=== PATIENT | female | born 1965 ===

== ENCOUNTER 2023-05-22 08:44 | Outpatient (REF) | payer BC, SELFPAY ==
[2023-05-21 23:08] LABS: Bacteria Rare HPF (Negative); C & S Indicated? C&S Done As Ordered; Casts Negative LPF (Negative); Crystals Negative HPF (Negative); Epithelial Cells Rare HPF (Negative); Mucus Negative (Negative); RBC 0-2 HPF (0-2); WBC Negative HPF (0-5)
--- OUTSIDE RECORDS SUMMARY | 2023-05-22 08:50 | XMS_ITS | CCD ---
Author Name Unknown Address [address] [place] [address] [id number] Organization Unknown Address [address] [place] [address] [phone] Care Team Providers Care Semiconductor Engineer Name Role Phone MARICRUZ CHAVEZ Attending Physician [phone] Vital Signs Unknown or Not Available. Allergies Allergy Code Allergy Type Reaction Status CODEINE 2670 Drug allergy Nausea; Vomiting Active PERCOCET 51393 Drug allergy MAKES HER HYPER Active KEFLEX 784918 Drug allergy Anaphylaxis Active AMOXICILLIN 723 Drug allergy RASH Active LATEX 0 Allergy to substance Hives Acti ve Procedures Unknown or Not Available. History of Immunizations Unknown or Not Available. Problems Problem Code Start Date Resolved Date Status Acute upper UTI (urinary tract infection) 421318833 05/10 Active Results CULT URINE CULTURE* - [facility] t Date/Time: 02/24/2023 09:00 Test Name Code Test Result Test Units Test Ref Rang e COLLECTION MODE: 75187-9 NOT STATED N/A Active Medications Medication Code Dose Units Frequency Route Modificatio n Start Date/Time Ondansetron 4MG Oral Tablet, Disintegrating 625579 1 TABLET NEEDED EVERY 6 HOURS ORAL 05/10/2022 22:44 Prescription Detail TAKE 1 TABLET ORAL NEEDED EVERY 6 MARIEL RS FOR Nausea/Vomiting Levaquin 500MG Oral Tablet 459479 1 TABLET DAILY ORAL 05/10/20 22 22:43 Prescription Detail TAKE 1 TABLET ORAL DAILY Pyridium 200MG Oral Tablet 2368551 1 TABLET NEEDED THREE TIMES A DAY ORAL 05/10/2022 22:43 Prescription Detail TAKE 1 TABLET ORAL NEEDED THREE TIMES A DAY FOR Burning urination LEVOTHYROXINE SODIUM 0.088MG ORAL T 0 0.088 MILLIGRAMS DAILY ORAL 9 19:03 Prescription Detail TAKE 0.088 MILLIGRAMS ORAL DAILY Lisinopril 40MG Oral Tablet 670811 40 MILLIGRAMS DAILY ORAL 019 19:03 Prescription Detail TAKE 40 MILLIGRAMS ORAL DAILY LEVOTHYROXINE SODIUM 0.088MG ORAL T 0 0.088 MILLIGRAMS DAILY ORAL 9 00:54 Prescription Detail TAKE 0.088 MILLIGRAMS ORAL DAILY Lisinopril 20MG Oral Tablet 926368 40 MILLIGRAMS DAILY ORAL 019 00:54 Prescription Detail TAKE 40 MILLIGRAMS ORAL DAILY Lisinopril 20MG Oral Tablet 735557 20 MILLIGRAMS AT BEDTIME ORAL 2018 00:54 Prescription Detail TAKE 20 MILLIGRAMS ORAL AT BEDTIME Medications Administered During Visit Unknown or Not Available. Encounters Encounter Diagnosis Diagnosis Code Start Date Low back pain, unspecified M5450 02/24 Social History Smoking Status Code Start Date End Date Never smoker [id number] Patient Decision Aids Unknown or Not Available. Discharge Instructions You were admitted to [facility] on 02/24/2023 18:02 with a principal diagnosis of Low back pain, unspecified You had the following tests done:CULT URINE CULTURE* You were discharged from [facility] on 02/24/2023 18:02 Should you have any questions prior to discharge, please contact a member of your healthcare team. If you have left the hospital and have any questions, please contact your primary care physician. Chief Complaint and Reason For Visit Unknown or Not Available. Function Status Unknown or Not Available. Plan of Care Unknown or Not Available. Referral/Transition of Care Unknown or Not Available.
--- OUTSIDE RECORDS SUMMARY | 2023-05-22 08:50 | XMS_ITS | CCD ---
Author Name Unknown Address [address] [place] [address] [phone] Organization Unknown Address [address] [place] [address] [phone] Care Team Providers Care Carton Filling Machine Operator Name Role Phone LOUIE QUEZADA Attending Physician [phone] Vital Signs Unknown or Not Available. Allergies Allergy Code Allergy Type Reaction Status CODEINE 2670 Drug allergy Nausea; Vomiting Active PERCOCET 87817 Drug allergy MAKES HER HYPER Active KEFLEX 887444 Drug allergy Anaphylaxis Active AMOXICILLIN 723 Drug allergy RASH Active LATEX 0 Allergy to substance Hives Acti ve Procedures Unknown or Not Available. History of Immunizations Unknown or Not Available. Problems Problem Code Start Date Resolved Date Status Acute upper UTI (urinary tract infection) 333020667 05/10 Active Results CULT URINE CULTURE* - [facility] t Date/Time: 05/02/2023 12:02 Test Name Code Test Result Test Units Test Ref Rang e COLLECTION MODE: 73525-5 NOT STATED N/A Active Medications Medication Code Dose Units Frequency Route Modificatio n Start Date/Time Ondansetron 4MG Oral Tablet, Disintegrating 755402 1 TABLET NEEDED EVERY 6 HOURS ORAL 05/10/2022 22:44 Prescription Detail TAKE 1 TABLET ORAL NEEDED EVERY 6 MARIEL RS FOR Nausea/Vomiting Levaquin 500MG Oral Tablet 399702 1 TABLET DAILY ORAL 05/10/20 22 22:43 Prescription Detail TAKE 1 TABLET ORAL DAILY Pyridium 200MG Oral Tablet 1948620 1 TABLET NEEDED THREE TIMES A DAY ORAL 05/10/2022 22:43 Prescription Detail TAKE 1 TABLET ORAL NEEDED THREE TIMES A DAY FOR Burning urination LEVOTHYROXINE SODIUM 0.088MG ORAL T 0 0.088 MILLIGRAMS DAILY ORAL 9 19:03 Prescription Detail TAKE 0.088 MILLIGRAMS ORAL DAILY Lisinopril 40MG Oral Tablet 363843 40 MILLIGRAMS DAILY ORAL 019 19:03 Prescription Detail TAKE 40 MILLIGRAMS ORAL DAILY LEVOTHYROXINE SODIUM 0.088MG ORAL T 0 0.088 MILLIGRAMS DAILY ORAL 9 00:54 Prescription Detail TAKE 0.088 MILLIGRAMS ORAL DAILY Lisinopril 20MG Oral Tablet 386430 40 MILLIGRAMS DAILY ORAL 019 00:54 Prescription Detail TAKE 40 MILLIGRAMS ORAL DAILY Lisinopril 20MG Oral Tablet 382752 20 MILLIGRAMS AT BEDTIME ORAL 2018 00:54 Prescription Detail TAKE 20 MILLIGRAMS ORAL AT BEDTIME Medications Administered During Visit Unknown or Not Available. Encounters Unknown or Not Available. Social History Smoking Status Code Start Date End Date Never smoker [id number] Patient Decision Aids Unknown or Not Available. Discharge Instructions You were admitted to [facility] on 05/02/2023 14:49 You had the following tests done:CULT URINE CULTURE* You were discharged from [facility] on 05/02/2023 14:49 Should you have any questions prior to [...]
--- OUTSIDE RECORDS SUMMARY | 2023-05-22 08:51 | XMS_ITS | CCD ---
Author Name Unknown Address [address] [place] [address] [phone] Organization Unknown Address [address] [place] [address] [phone] Care Team Providers Care Ground Control Approach Technician Name Role Phone JACOB ORDONEZ Attending Physician [phone] Vital Signs Unknown or Not Available. Allergies Allergy Code Allergy Type Reaction Status CODEINE 2670 Drug allergy Nausea; Vomiting Active PERCOCET 73353 Drug allergy MAKES HER HYPER Active KEFLEX 034124 Drug allergy Anaphylaxis Active AMOXICILLIN 723 Drug allergy RASH Active LATEX 0 Allergy to substance Hives Acti ve Procedures Unknown or Not Available. History of Immunizations Unknown or Not Available. Problems Problem Code Start Date Resolved Date Status Acute upper UTI (urinary tract infection) 249419574 05/10 Active Diabetes 2 72478959 05/10/2022 Resolved Results Unknown or Not Available. Active Medications Medication Code Dose Units Frequency Route Modificatio n Start Date/Time Ondansetron 4MG Oral Tablet, Disintegrating 125478 1 TABLET NEEDED EVERY 6 HOURS ORAL 05/10/2022 22:44 Prescription Detail TAKE 1 TABLET ORAL NEEDED EVERY 6 MARIEL RS FOR Nausea/Vomiting Levaquin 500MG Oral Tablet 681734 1 TABLET DAILY ORAL 05/10/20 22 22:43 Prescription Detail TAKE 1 TABLET ORAL DAILY Pyridium 200MG Oral Tablet 6129822 1 TABLET NEEDED THREE TIMES A DAY ORAL 05/10/2022 22:43 Prescription Detail TAKE 1 TABLET ORAL NEEDED THREE TIMES A DAY FOR Burning urination LEVOTHYROXINE SODIUM 0.088MG ORAL T 0 0.088 MILLIGRAMS DAILY ORAL 9 19:03 Prescription Detail TAKE 0.088 MILLIGRAMS ORAL DAILY Lisinopril 40MG Oral Tablet 635589 40 MILLIGRAMS DAILY ORAL 019 19:03 Prescription Detail TAKE 40 MILLIGRAMS ORAL DAILY LEVOTHYROXINE SODIUM 0.088MG ORAL T 0 0.088 MILLIGRAMS DAILY ORAL 9 00:54 Prescription Detail TAKE 0.088 MILLIGRAMS ORAL DAILY Lisinopril 20MG Oral Tablet 324958 40 MILLIGRAMS DAILY ORAL 019 00:54 Prescription Detail TAKE 40 MILLIGRAMS ORAL DAILY Lisinopril 20MG Oral Tablet 871245 20 MILLIGRAMS AT BEDTIME ORAL 2018 00:54 Prescription Detail TAKE 20 MILLIGRAMS ORAL AT BEDTIME Medications Administered During Visit Unknown or Not Available. Encounters Encounter Diagnosis Diagnosis Code Start Date Unilateral primary osteoarthritis, left knee M17 12 02/26/2022 Social History Smoking Status Code Start Date End Date Never smoker [id number] Patient Decision Aids Unknown or Not Available. Discharge Instructions You were admitted to [facility] on 02/26/2022 07:27 with a principal diagnosis of Unilateral primary osteoarthritis, left knee You were discharged from [facility] on 02/26/2022 07:27 Should you have any questions prior to discharge, please contact a member of your healthcare team. If you have left the hospital and have any questions, please contact your primary care physician. Chief Complaint and Reason For Visit Chief Complaint Date of Onset LT KNEE PAIN Function Status Unknown or Not Available. Plan of Care Unknown or Not Available. Referral/Transition of Care Unknown or Not Available.
--- OUTSIDE RECORDS SUMMARY | 2023-05-22 08:51 | XMS_ITS | CCD ---
Author Name Unknown Address [address] [place] [address] [phone] Organization Unknown Address [address] [place] [address] [phone] Care Team Providers Care Front Office Representative Name Role Phone JACOB ORDONEZ Attending Physician [phone] Vital Signs Unknown or Not Available. Allergies Allergy Code Allergy Type Reaction Status CODEINE 2670 Drug allergy Nausea; Vomiting Active PERCOCET 78376 Drug allergy MAKES HER HYPER Active KEFLEX 866547 Drug allergy Anaphylaxis Active AMOXICILLIN 723 Drug allergy RASH Active LATEX 0 Allergy to substance Hives Acti ve Procedures Unknown or Not Available. History of Immunizations Unknown or Not Available. Problems Problem Code Start Date Resolved Date Status Acute upper UTI (urinary tract infection) 971146105 05/10 Active Diabetes 2 76057159 05/10/2022 Resolved Results Unknown or Not Available. Active Medications Medication Code Dose Units Frequency Route Modificatio n Start Date/Time Ondansetron 4MG Oral Tablet, Disintegrating 448034 1 TABLET NEEDED EVERY 6 HOURS ORAL 05/10/2022 22:44 Prescription Detail TAKE 1 TABLET ORAL NEEDED EVERY 6 MARIEL RS FOR Nausea/Vomiting Levaquin 500MG Oral Tablet 876077 1 TABLET DAILY ORAL 05/10/20 22 22:43 Prescription Detail TAKE 1 TABLET ORAL DAILY Pyridium 200MG Oral Tablet 3397374 1 TABLET NEEDED THREE TIMES A DAY ORAL 05/10/2022 22:43 Prescription Detail TAKE 1 TABLET ORAL NEEDED THREE TIMES A DAY FOR Burning urination LEVOTHYROXINE SODIUM 0.088MG ORAL T 0 0.088 MILLIGRAMS DAILY ORAL 9 19:03 Prescription Detail TAKE 0.088 MILLIGRAMS ORAL DAILY Lisinopril 40MG Oral Tablet 696300 40 MILLIGRAMS DAILY ORAL 019 19:03 Prescription Detail TAKE 40 MILLIGRAMS ORAL DAILY LEVOTHYROXINE SODIUM 0.088MG ORAL T 0 0.088 MILLIGRAMS DAILY ORAL 9 00:54 Prescription Detail TAKE 0.088 MILLIGRAMS ORAL DAILY Lisinopril 20MG Oral Tablet 868746 40 MILLIGRAMS DAILY ORAL 019 00:54 Prescription Detail TAKE 40 MILLIGRAMS ORAL DAILY Lisinopril 20MG Oral Tablet 307630 20 MILLIGRAMS AT BEDTIME ORAL 2018 00:54 Prescription Detail TAKE 20 MILLIGRAMS ORAL AT BEDTIME Medications Administered During Visit Unknown or Not Available. Encounters Encounter Diagnosis Diagnosis Code Start Date Inconclusive mammography finding [id number] 09/24/2021 Social History Smoking Status Code Start Date End Date Never smoker [id number] Patient Decision Aids Unknown or Not Available. Discharge Instructions You were admitted to [facility] on 09/24/2021 09:49 with a principal diagnosis of Other abnormal and inconclusive findings on diagnostic imaging of breast You were discharged from [facility] on 09/24/2021 09:49 Should you have any questions prior to discharge, please contact a member of your healthcare team. If you have left the hospital and have any questions, please contact your primary care physician. Chief Complaint and Reason For Visit Chief Complaint Date of Onset CALLBACK REPORT FROM 09/11/21 Function Status Unknown or Not Available. Plan of Care Unknown or Not Available. Referral/Transition of Care Unknown or Not Available.
--- OUTSIDE RECORDS SUMMARY | 2023-05-22 08:51 | XMS_ITS | CCD ---
Author Name Unknown Address [address] [place] [address] [phone] Organization Unknown Address [address] [place] [address] [phone] Care Team Providers Care Cuff Setter Lockstitch Name Role Phone JACOB ORDONEZ Attending Physician [phone] Vital Signs Unknown or Not Available. Allergies Allergy Code Allergy Type Reaction Status CODEINE 2670 Drug allergy Nausea; Vomiting Active PERCOCET 89552 Drug allergy MAKES HER HYPER Active KEFLEX 449071 Drug allergy Anaphylaxis Active AMOXICILLIN 723 Drug allergy RASH Active LATEX 0 Allergy to substance Hives Acti ve Procedures Unknown or Not Available. History of Immunizations Unknown or Not Available. Problems Problem Code Start Date Resolved Date Status Acute upper UTI (urinary tract infection) 810684955 05/10 Active Diabetes 2 88132753 05/10/2022 Resolved Results Unknown or Not Available. Active Medications Medication Code Dose Units Frequency Route Modificatio n Start Date/Time Ondansetron 4MG Oral Tablet, Disintegrating 849094 1 TABLET NEEDED EVERY 6 HOURS ORAL 05/10/2022 22:44 Prescription Detail TAKE 1 TABLET ORAL NEEDED EVERY 6 MARIEL RS FOR Nausea/Vomiting Levaquin 500MG Oral Tablet 199498 1 TABLET DAILY ORAL 05/10/20 22 22:43 Prescription Detail TAKE 1 TABLET ORAL DAILY Pyridium 200MG Oral Tablet 4908274 1 TABLET NEEDED THREE TIMES A DAY ORAL 05/10/2022 22:43 Prescription Detail TAKE 1 TABLET ORAL NEEDED THREE TIMES A DAY FOR Burning urination LEVOTHYROXINE SODIUM 0.088MG ORAL T 0 0.088 MILLIGRAMS DAILY ORAL 9 19:03 Prescription Detail TAKE 0.088 MILLIGRAMS ORAL DAILY Lisinopril 40MG Oral Tablet 062973 40 MILLIGRAMS DAILY ORAL 019 19:03 Prescription Detail TAKE 40 MILLIGRAMS ORAL DAILY LEVOTHYROXINE SODIUM 0.088MG ORAL T 0 0.088 MILLIGRAMS DAILY ORAL 9 00:54 Prescription Detail TAKE 0.088 MILLIGRAMS ORAL DAILY Lisinopril 20MG Oral Tablet 758075 40 MILLIGRAMS DAILY ORAL 019 00:54 Prescription Detail TAKE 40 MILLIGRAMS ORAL DAILY Lisinopril 20MG Oral Tablet 858289 20 MILLIGRAMS AT BEDTIME ORAL 2018 00:54 Prescription Detail TAKE 20 MILLIGRAMS ORAL AT BEDTIME Medications Administered During Visit Unknown or Not Available. Encounters Encounter Diagnosis Diagnosis Code Start Date Other abnormal and inconclus juanita findings on diagnostic imaging of breast R928 03/24/2022 Social History Smoking Status Code Start Date End Date Never smoker [id number] Patient Decision Aids Unknown or Not Available. Discharge Instructions You were admitted to [facility] on 03/24/2022 07:51 with a principal diagnosis of Other abnormal and inconclusive findings on diagnostic imaging of breast You were discharged from [facility] on 03/24/2022 07:51 Should you have any questions prior to discharge, please contact a member of your healthcare team. If you have left the hospital and have any questions, please contact your primary care physician. Chief Complaint and Reason For Visit Chief Complaint Date of Onset 6 MONTH FU Function Status Unknown or Not Available. Plan of Care Unknown or Not Available. Referral/Transition of Care Unknown or Not Available.
--- OUTSIDE RECORDS SUMMARY | 2023-05-22 08:51 | XMS_ITS | CCD ---
Author Name Unknown Address [address] [place] [address] [phone] Organization Unknown Address [address] [place] [address] [phone] Care Team Providers Care Front Office Assistant Name Role Phone MERYMICHAELJACOB Attending Physician [phone] Vital Signs Unknown or Not Available. Allergies Allergy Code Allergy Type Reaction Status CODEINE 2670 Drug allergy Nausea; Vomiting Active PERCOCET 11029 Drug allergy MAKES HER HYPER Active KEFLEX 627754 Drug allergy Anaphylaxis Active AMOXICILLIN 723 Drug allergy RASH Active LATEX 0 Allergy to substance Hives Acti ve Procedures Unknown or Not Available. History of Immunizations Unknown or Not Available. Problems Problem Code Start Date Resolved Date Status Acute upper UTI (urinary tract infection) 414855107 05/10 Active Results LIPID PANEL* - Collect Date/ Time: 09/11/2022 07:38 Test Name Code Test Result Test Units Test Ref Rang e CHOLESTEROL 2093-3 185 mg/dL L=0 H=200 TRIGLYCERIDES 2571-8 241 mg/dL L=53 H=223 HDL 2085-9 39 mg/dL L=37 H=91 non-HDL-C 83511-8 146 mg/dL L=0 H=160 LDL (CALC) 61696-6 98 mg/dL L=0 H=130 % HDL 21.1 % Chol/HDL Ratio 9830-1 4.7 L=0.0 H=4. 4 CHD Relative Risk 1.1 x Avg L=0.0 H =1.0 LDL/HDL Ratio 27827-7 2.5 L=0.0 H=3.2 CHD Relative Risk. 0.8 x Avg L=0.0 H=1.0 FASTING STATUS: FASTING N/A TSH THYROID STIMULATING HORM ONE* - Collect Date/Time: 09/11/2022 07:38 Test Name Code Test Result Test Units Test Ref Rang e TSH 3014-8 2.918 uIU/mL L=0.360 H=3.74 0 Active Medications Medication Code Dose Units Frequency Route Modificatio n Start Date/Time Ondansetron 4MG Oral Tablet, Disintegrating 745076 1 TABLET NEEDED EVERY 6 HOURS ORAL 05/10/2022 22:44 Prescription Detail TAKE 1 TABLET ORAL NEEDED EVERY 6 MARIEL RS FOR Nausea/Vomiting Levaquin 500MG Oral Tablet 672828 1 TABLET DAILY ORAL 05/10/20 22 22:43 Prescription Detail TAKE 1 TABLET ORAL DAILY Pyridium 200MG Oral Tablet 2855229 1 TABLET NEEDED THREE TIMES A DAY ORAL 05/10/2022 22:43 Prescription Detail TAKE 1 TABLET ORAL NEEDED THREE TIMES A DAY FOR Burning urination LEVOTHYROXINE SODIUM 0.088MG ORAL T 0 0.088 MILLIGRAMS DAILY ORAL 9 19:03 Prescription Detail TAKE 0.088 MILLIGRAMS ORAL DAILY Lisinopril 40MG Oral Tablet 098778 40 MILLIGRAMS DAILY ORAL 019 19:03 Prescription Detail TAKE 40 MILLIGRAMS ORAL DAILY LEVOTHYROXINE SODIUM 0.088MG ORAL T 0 0.088 MILLIGRAMS DAILY ORAL 9 00:54 Prescription Detail TAKE 0.088 MILLIGRAMS ORAL DAILY Lisinopril 20MG Oral Tablet 947852 40 MILLIGRAMS DAILY ORAL 019 00:54 Prescription Detail TAKE 40 MILLIGRAMS ORAL DAILY Lisinopril 20MG Oral Tablet 078793 20 MILLIGRAMS AT BEDTIME ORAL 2018 00:54 Prescription Detail TAKE 20 MILLIGRAMS ORAL AT BEDTIME Medications Administered During Visit Unknown or Not Available. Encounters Unknown or Not Available. Social History Smoking Status Code Start Date End Date Never smoker [id number] Patient Decision Aids Unknown or Not Available. Discharge Instructions You were admitted to [facility] on 09/11/2022 07:04 You had the following tests done:LIPID PANEL*TSH THYROID STIMULATING HORMONE* You were discharged from [facility] Should you have any questions prior to [...]
--- OUTSIDE RECORDS SUMMARY | 2023-05-22 08:51 | XMS_ITS | CCD ---
Author Name Unknown Address [address] [place] [address] [phone] Organization Unknown Address [address] [place] [address] [id number] Care Team Providers Care Tip Finisher Name Role Phone LEONA RICHEY Attending Physician [phone] Vital Signs Unknown or Not Available. Allergies Allergy Code Allergy Type Reaction Status CODEINE 2670 Drug allergy Nausea; Vomiting Active PERCOCET 90086 Drug allergy MAKES HER HYPER Active KEFLEX 718257 Drug allergy Anaphylaxis Active AMOXICILLIN 723 Drug allergy RASH Active LATEX 0 Allergy to substance Hives Acti ve Procedures Unknown or Not Available. History of Immunizations Unknown or Not Available. Problems Problem Code Start Date Resolved Date Status Acute upper UTI (urinary tract infection) 456754258 05/10 Active Diabetes 2 49013725 05/10/2022 Resolved Results [facility] COVID RHEONIX* - [facility] Date/Time: 03/26/2022 09:54 Test Name Code Test Result Test Units Test Ref Rang e Tier- 41975-5 SYMPTOMS N/A SARS COV2 RNA: 06748-3 POSITIVE N/A REFERENCE RANGE: NEGAT Active Medications Medication Code Dose Units Frequency Route Modificatio n Start Date/Time Ondansetron 4MG Oral Tablet, Disintegrating 586463 1 TABLET NEEDED EVERY 6 HOURS ORAL 05/10/2022 22:44 Prescription Detail TAKE 1 TABLET ORAL NEEDED EVERY 6 MARIEL RS FOR Nausea/Vomiting Levaquin 500MG Oral Tablet 901375 1 TABLET DAILY ORAL 05/10/20 22:43 Prescription Detail TAKE 1 TABLET ORAL DAILY Pyridium 200MG Oral Tablet 9165190 1 TABLET NEEDED THREE TIMES A DAY ORAL 05/10/2022 22:43 Prescription Detail TAKE 1 TABLET ORAL NEEDED THREE TIMES A DAY FOR Burning urination LEVOTHYROXINE SODIUM 0.088MG ORAL T 0 0.088 MILLIGRAMS DAILY ORAL 06/11/201 9 19:03 Prescription Detail TAKE 0.088 MILLIGRAMS ORAL DAILY Lisinopril 40MG Oral Tablet 893992 40 MILLIGRAMS DAILY ORAL 019 19:03 Prescription Detail TAKE 40 MILLIGRAMS ORAL DAILY LEVOTHYROXINE SODIUM 0.088MG ORAL T 0 0.088 MILLIGRAMS DAILY ORAL 9 00:54 Prescription Detail TAKE 0.088 MILLIGRAMS ORAL DAILY Lisinopril 20MG Oral Tablet 876820 40 MILLIGRAMS DAILY ORAL 019 00:54 Prescription Detail TAKE 40 MILLIGRAMS ORAL DAILY Lisinopril 20MG Oral Tablet 135164 20 MILLIGRAMS AT BEDTIME ORAL 2018 00:54 Prescription Detail TAKE 20 MILLIGRAMS ORAL AT BEDTIME Medications Administered During Visit Unknown or Not Available. Encounters Encounter Diagnosis Diagnosis Code Start Date COVID-19 [id number] 03/26/2022 Social History Smoking Status Code Start Date End Date Never smoker 217320399 Patient Decision Aids Unknown or Not Available. Discharge Instructions You were admitted to [facility] on 03/26/2022 08:15 with a principal diagnosis of COVID-19 You had the following tests done:[facility] COVID RHEONIX* You were discharged from [facility] on 03/26/2022 08:15 Should you have any questions prior to [...]
--- OUTSIDE RECORDS SUMMARY | 2023-05-22 08:51 | XMS_ITS | CCD ---
Author Name Unknown Address [address] [place] [address] [id number] Organization Unknown Address [address] [place] [address] [id number] Care Team Providers Care Experimental Mechanic Electrical Name Role Phone JACOB ORDONEZ Attending Physician [phone] Vital Signs Unknown or Not Available. Allergies Allergy Code Allergy Type Reaction Status CODEINE 2670 Drug allergy Nausea; Vomiting Active PERCOCET 36600 Drug allergy MAKES HER HYPER Active KEFLEX 398254 Drug allergy Anaphylaxis Active AMOXICILLIN 723 Drug allergy RASH Active LATEX 0 Allergy to substance Hives Acti ve Procedures Unknown or Not Available. History of Immunizations Unknown or Not Available. Problems Problem Code Start Date Resolved Date Status Acute upper UTI (urinary tract infection) 509303202 05/10 Active Diabetes 2 60939993 05/10/2022 Resolved Results TSH THYROID STIMULATING HORM ONE* - Collect Date/Time: 09/17/2021 09:04 Test Name Code Test Result Test Units Test Ref Rang e TSH 3014-8 2.703 uIU/mL L=0.360 H=3.74 0 Active Medications Medication Code Dose Units Frequency Route Modificatio n Start Date/Time Ondansetron 4MG Oral Tablet, Disintegrating 081125 1 TABLET NEEDED EVERY 6 HOURS ORAL 05/10/2022 22:44 Prescription Detail TAKE 1 TABLET ORAL NEEDED EVERY 6 MARIEL RS FOR Nausea/Vomiting Levaquin 500MG Oral Tablet 703037 1 TABLET DAILY ORAL 05/10/20 22:43 Prescription Detail TAKE 1 TABLET ORAL DAILY Pyridium 200MG Oral Tablet 4712779 1 TABLET NEEDED THREE TIMES A DAY ORAL 05/10/2022 22:43 Prescription Detail TAKE 1 TABLET ORAL NEEDED THREE TIMES A DAY FOR Burning urination LEVOTHYROXINE SODIUM 0.088MG ORAL T 0 0.088 MILLIGRAMS DAILY ORAL 19:03 Prescription Detail TAKE 0.088 MILLIGRAMS ORAL DAILY Lisinopril 40MG Oral Tablet 186558 40 MILLIGRAMS DAILY ORAL 019 19:03 Prescription Detail TAKE 40 MILLIGRAMS ORAL DAILY LEVOTHYROXINE SODIUM 0.088MG ORAL T 0 0.088 MILLIGRAMS DAILY ORAL 9 00:54 Prescription Detail TAKE 0.088 MILLIGRAMS ORAL DAILY Lisinopril 20MG Oral Tablet 635000 40 MILLIGRAMS DAILY ORAL 019 00:54 Prescription Detail TAKE 40 MILLIGRAMS ORAL DAILY Lisinopril 20MG Oral Tablet 055620 20 MILLIGRAMS AT BEDTIME ORAL 2018 00:54 Prescription Detail TAKE 20 MILLIGRAMS ORAL AT BEDTIME Medications Administered During Visit Unknown or Not Available. Encounters Encounter Diagnosis Diagnosis Code Start Date Hypothyroidism 65730799 09/17/2021 Social History Smoking Status Code Start Date End Date Never smoker [id number] Patient Decision Aids Unknown or Not Available. Discharge Instructions You were admitted to [facility] on 09/17/2021 18:21 with a principal diagnosis of Hypothyroidism, unspecified You had the following tests done:TSH THYROID STIMULATING HORMONE* You were discharged from [facility] on 09/17/2021 18:21 Should you have any questions prior to [...]
--- OUTSIDE RECORDS SUMMARY | 2023-05-22 08:51 | XMS_ITS | CCD ---
Author Name Unknown Address [address] [place] [address] [id number] Organization Unknown Address [address] [place] [address] [id number] Care Team Providers Care Count Team Clerk Name Role Phone ESDRAS ARROYO Attending Physician [phone] ESDRAS ARROYO Er Physician 9 [phone] DEREJE Gutierrez Registered Nurse [phone] JANEL Coronado Registered Nurse [phone] Vital Signs Vital Sign Value Unit Date/Time Recent/Initial ? BMI (Body Mass Index) 41.81 kg/m^2 05/10/2022 21: 40 Initial VS Weight Measured 275 lbs 05/10/2022 21:40 Ini tial VS Height 68 in 05/10/2022 21:40 Initial VS BSA (Body Surface Area) 2.45 m^2 05/10/2022 2 1:40 Initial VS BP Systolic 183 mmHg 05/10/2022 21:40 Initial VS BP Diastolic 107 mmHg 05/10/2022 21:40 Initia l VS Respiratory Rate 18 bpm 05/10/2022 21:40 In itial VS Heart Rate 117 bpm 05/10/2022 21:40 Initial VS O2 % BldC Oximetry 98 % 05/10/2022 21:40 Initial VS Body Temperature 37.2 degrees 05/10/2022 21:40 In itial VS BP Systolic 153 mmHg 05/10/2022 23:58 Most Re cent VS BP Diastolic 97 mmHg 05/10/2022 23:58 Most R ecent VS Respiratory Rate 16 bpm 05/10/2022 23:[address] Recent VS Heart Rate 80 bpm 05/10/2022 23:58 Most Rec ent VS O2 % BldC Oximetry 94 % 05/10/2022 23:58 Most Recent VS Body Temperature 37.1 degrees 05/10/2022 23:[address] Recent VS Allergies Allergy Code Allergy Type Reaction Status CODEINE 2670 Drug allergy Nausea; Vomiting Active PERCOCET 58284 Drug allergy MAKES HER HYPER Active KEFLEX 501264 Drug allergy Anaphylaxis Active AMOXICILLIN 723 Drug allergy RASH Active LATEX 0 Allergy to substance Hives Acti ve Procedures Unknown or Not Available. History of Immunizations Unknown or Not Available. Problems Problem Code Start Date Resolved Date Status Acute upper UTI (urinary tract infection) 157753382 05/10 Active Diabetes 2 82343927 05/10/2022 Resolved Results COMPREHENSIVE METABOLIC PANE L (CMP) - Collect Date/Time: 05/10/2022 23:10 Test Name Code Test Result Test Units Test Ref Rang e GLUCOSE 2345-7 193 mg/dL L=70 H=116 BUN 3094-0 21 mg/dL L=6 H=25 CREATININE 2160-0 1.01 mg/dL L=0.51 H=0.95 SODIUM SERUM 2951-2 138 mmol/L L=136 H=145 POTASSIUM SERUM 2823-3 3.9 mmol/L L=3.4 H=5 .2 CHLORIDE SERUM 2075-0 101 mmol/L L=96 H=110 CARBON DIOXIDE (CO2) 2028-9 28 mmol/L L=22 H=34 ANION GAP 29896-4 8.8 mmol/L CALCIUM SERUM 51356-6 8.5 mg/dL L=8.2 H=10. 2 BILIRUBIN TOTAL 1975-2 0.4 mg/dL L=0.0 H=1 .3 ALK. PHOS. 6768-6 102 U/L L=46 H=116 SGOT (AST) 1920-8 15 U/L L=15 H=37 SGPT (ALT) 1742-6 30 U/L L=12 H=78 TOTAL PROTEIN 2885-2 7.1 gm/dL L=6.0 H=8.0 ALBUMIN 1751-7 4.0 gm/dL L=3.4 H=5.0 AGE 56 years eGFR (non-Afr.Amer.) 62146-5 57 mL/min eGFR (Afr-Malagasy) 05481-4 69 mL/min CBC W/ DIFFERENTIAL* - Colle ct Date/Time: 05/10/2022 22:00 Test Name Code Test Result Test Units Test Ref Rang e WBC 6690-2 10.09 th/cmm L=5.00 H=10.00 NEUT % 72.6 % L=40.0 H=80.0 LYMPH % 18.1 % L=10.0 H=50.0 MONO % 92837-1 6.7 % L=2.0 H=12.0 EOS % 1.6 % L=0.0 H=8.0 BASO % 0.6 % L=0.0 H=3.0 IG % 2514-8 0.4 % L=0.0 H=1.1 NRBC % 38524-0 0.0 % L=0.0 H=0.0 NEUT abs count 751-8 7.3 th/cmm L=1.6 H=8. 4 LYMPH abs count 731-0 1.8 th/cmm L=1.5 H=4 .0 MONO abs count 742-7 0.7 th/cmm L=0.2 H=1. 0 EOS abs count 711-2 0.2 th/cmm L=0.0 H=0.5 BASO abs count 704-7 0.1 th/cmm L=0.0 H=0. 2 IG abs count 54285-9 0.0 th/cmm L=0.0 H=0.1 NRBC abs count 71112-6 0.0 mil/cmm L=0.0 H=0. 0 RBC 789-8 4.73 mil/cmm L=3.90 H=5.40 HEMOGLOBIN 718-7 13.6 gm/dL L=12.0 H=16.0 HEMATOCRIT 4544-3 40 % L=37 H=47 MCV 787-2 84 fL L=82 H=92 MCH 785-6 28.8 pg L=27.0 H=31.0 MCHC 786-4 34.1 % L=32.0 H=36.0 RDW-SD 788-0 39.2 fL L=39.0 H=49.0 PLATELET COUNT 777-3 DNR N/A L=150 H=[address] invalid N/A Platelet est. Adequate N/A CULT URINE CULTURE* - [facility] t Date/Time: 05/10/2022 21:40 Test Name Code Test Result Test Units Test Ref Rang e COLLECTION MODE: 27533-1 CLEAN CATCH N/A URINALYSIS WITH REFLEX CULT IF POSITIVE* - Collect Date/Time: 05/10/2022 21:40 Test Name Code Test Result Test Units Test Ref Rang e COLLECTION MODE: 10722-8 CLEAN CATCH N/A Color 5778-6 YELLOW N/A yellow Appearance 5767-9 HAZY N/A clear Glucose urine 20230-3 NEGATIVE N/A negative mg /dl Bilirubin 5770-3 NEGATIVE N/A negative Ketones 2514-8 NEGATIVE N/A negative mg/dl Spec gravity 5811-5 1.025 N/A 1.003 - 1.03 0 pH urine 2756-5 6.0 N/A 5.0 - 7.0 Protein 87272-6 30 N/A negative mg/dl Urobilinogen 54962-3 0.2 N/A <or= 1 EU/dl Nitrite. 5802-4 NEGATIVE N/A negative Blood 5794-3 MODERATE N/A negative Leukocytes. MODERATE N/A negative MICROSCOPIC INDICATED N/A WBCs. 13840-0 >100 N/A 0-5 / hpf RBCs 77770-0 >100 N/A 0-5 / hpf Epith cells 09073-1 0-5 N/A 0-5 / hpf Cell types squamous N/A Crystals none N/A none Bacteria moderate N/A none Mucus 8247-9 none N/A none Casts 36052-2 none N/A none /lpf Active Medications Medications Administered During Visit Medication Dose Units Frequency Route Date/Time of Last Dose SODIUM CHLORIDE 0.9% 1000ML 1000 ML X1 05/10/2022 22:20 ONDANSETRON INJ SDV: 4MG/2ML 4 MG X1 I [employer]ICER 05/10/2022 22:20 ACETAMINOPHEN INJ IVPB: 1000MG/100ML 1000 MG X1 05/10/2022 22:1 9 PHENAZOPYRIDINE TABLET: 100MG 200 MG X1 PO 05/10/2022 22:19 LEVOFLOXACIN IVPB PREMIX BAMG/100ML 500 MG X1 05/10/2022 2 2:43 ER-ONDANSETRON ODT 4 PACK: 4MG 4 MG PRN Q6H PO 05/10/2022 23:48 Encounters Encounter Diagnosis Diagnosis Code Start Date Urinary tract infection, site not specified N390 05/10/2022 Social History Smoking Status Code Start Date End Date Never smoker [id number] Patient Decision Aids Patient Decision Aid URINARY TRACT INFECTION, ACU TE Discharge Instructions You were admitted to [facility] on 05/10/2022 21:29 with a principal diagnosis of Urinary tract infection, site not specified You had the following tests done:COMPREHENSIVE METABOLIC PANEL (CMP)CBC W/ DIFFERENTIAL*CULT URINE CULTURE*URINALYSIS WITH REFLEX CULT IF POSITIVE* You were discharged from [facility] on 05/11/2022 00:00 Should you have any questions prior to discharge, please contact a member of your healthcare team. If you have left the hospital and have any questions, please contact your primary care physician. Chief Complaint and Reason For Visit Chief Complaint Date of Onset URINARY ISSUE Function Status Unknown or Not Available. Plan of Care Unknown or Not Available. Referral/Transition of Care Unknown or Not Available.
--- OUTSIDE RECORDS SUMMARY | 2023-05-22 08:52 | XMS_ITS | Patient Health Record ---
Author Name Unknown Organization [facility] Address [address] [place], [place] [id number] Care Team Providers Care Shank Stapler Name Role Phone JACOB ORDONEZ Primary Care Provider LOUIE QUEZADA Unavailable [phone] MARICRUZ CHAVEZ Unavailable [phone] ALLERGIES Allergen (clinical drug ingredient) Drug/Non Drug Allergy documented on EMR Reaction Allergy Type Onset Date Status Latex latex (uncoded) Unknown Allergy Acti ve Augmentin Unknown Drug Allergy Active Codeine Phosphate Unknown Drug Allergy Active hydrochlorothiazide Hydrochlorothiazide tongue f elt funny Drug Allergy Active lisinopril Lisinopril tongue swelling, throat swelling Drug Allergy Active RESULTS Component Value Reference Range Notes -HbgA1C Reviewed date:09/02/2022 08:58:09 AM Interpretation: Performing Lab: Notes/Report: -Urinalysis Reviewed date:02/24/2023 12:40:13 PM Interpretation: Performing Lab: Notes/Report: CULT URINE CULTURE* Reviewed date:02/26/2023 03:19:45 PM Interpretation:Negative-mixed Performing Lab: Notes/Report: [facility] [address] [place] [address] Overlock Collar Setter: Yobany Chapman M.D. CULT URINE CULTURE* URINE CU LTURE COLLECTION MODE: NOT STATED \LM00\\20PI\\LPI8\ Microbiology Specimen Source Urine Collection Date 02/24/2023 Specimen Note: URINE Collection Time 09:00 Exam Id. No: [id number] Receipt Date 02/24/2023 ----- Organism # 1: Mixed Gram Positive and Gram Negative Growth (mix) CC=10,000-100,000 \12PI\\LPI6\ -Urinalysis Reviewed date:05/02/2023 11:30:55 AM Interpretation:consistent with infection Performing Lab: Notes/Report: CULT URINE CULTURE* Reviewed date:05/03/2023 01:19:33 PM Interpretation:>100 k mixed gram pos growth Performing Lab: Notes/Report: [facility] [address] [place] [address] Overlock Collar Setter: Yobany Chapman M.D. CULT URINE CULTURE* URINE CU LTURE COLLECTION MODE: NOT STATED \LM00\\20PI\\LPI8\ Microbiology Specimen Source Urine Collection Date 05/02/2023 Specimen Note: URINE Collection Time 12:02 [place]am [place]. No: [id number] Receipt Date 05/02/2023 ----- Organism # 1: Mixed Gram Positive and Gram Negative Growth (mix) CC= >100,000 CFU/mL \12PI\\LPI6\ -HbgA1C Reviewed date:05/06/2023 12:19:08 PM Interpretation: Performing Lab: Notes/Report: -Microalbumin Reviewed date:05/06/2023 12:19:19 PM Interpretation: Performing Lab: Notes/Report: LIPID PANEL Reviewed date:09/14/2022 07:52:29 PM Interpretation: Performing Lab: Notes/Report: [facility] [address] [place] [address] Overlock Collar Setter: Yobany Chapman M.D. FASTING STATUS: FASTING CHOLESTEROL 185 0 - 200 mg/dL TRIGLYCERIDES 241 53 - 223 mg/dL HDL 39 37 - 91 mg/dL non-HDL-C 146 0 - 160 mg/dL LDL (CALC) 98 0 - 130 mg/dL % HDL 21.1 Chol/HDL Ratio 4.7 0.0 - 4.4 CHD Relative Risk 1.1 0.0 - 1.0 x Avg LDL/HDL Ratio 2.5 0.0 - 3.2 CHD Relative Risk. 0.8 0.0 - 1.0 x Avg non-HDL-C and LDL(CALC) reference ranges reflect NCEP ATP III recommendations for moderate risk patients TSH THYROID STIMULATING HORM ONE* Reviewed date:09/15/2022 08:04:31 AM Interpretation: Performing Lab: Notes/Report: [facility] [address] [place] [address] Overlock Collar Setter: Yobany Chapman M.D. TSH 2.918 0.360 - 3.740 uIU/mL -HbgA1C Reviewed date:01/29/2023 03:09:46 PM Interpretation: Performing Lab: Notes/Report: REASON FOR REFERRAL Reason due for 3 year f/u c olo after sessile serrated adenoma- [place] [address] rodriguez Diagnosis 1 Serrated adenoma of colon (D12.6) Referral Organization [facility]ong Referring Provider First Name JACOB Referring Provider Last Name MERY [facility] Referred Provider Ginette Rosario Referred Provider Specialty Surgery [facility] Notes Vahe Re 2021 01:42:43 PM > referral faxed, Clara Uriarte 02/12/2023 08:58:30 AM > Pt could not be reached or did not return phone call. Referral Priority Routine MEDICATIONS Medication SIG (Take, Route, Frequency, Duration) Notes Start Date End Date Status amLODIPine Besylate 5 MG 1 tablet Orally Once a day Active Nystatin 349546 UNIT/GM 1 application Externally Twice a day prn Active Levothyroxine Sodium 112 MCG 1 tablet in the morning on an empty stomach Orally Once a day for 90 days new dose 08/06/2021 Active Phenazopyridine HCl 200 MG 1 tablet Orally Three times a day for 2 day(s) 05/02/2023 Active Cyclobenzaprine HCl 10 MG 1/2-1 tablet by mouth at bedtime for 10 days 02/24/2023 Active Famotidine 20 MG 1 tablet Orally Once a day for 90 days 03/06/2020 Active metFORMIN HCl ER 500 MG 1 tablet with meals Orally Once a day for 90 days Active Clobetasol Propionate 0.05 % 1 application Externally at bedtime for 1-2 weeks then a couple nights a week as needed for 30 days 05/03/2021 Active Glucometer Insurance approved brand 08/06/2021 Active Lancets Insurance approved brand checking fs BID for 90 days 08/06/2021 Active Metoprolol Succinate ER 50 MG 1 tablet Orally Once a day Active Atorvastatin Calcium 10 MG 1 tablet Orally Once a day for 30 day(s) 02/18/2022 Active Ondansetron HCl 8 MG 1/2-1 tab Orally three times daily as needed for 5 days 01/20/2020 Not-Taking Triamcinolone Acetonide 0.1 % 1 application Externally Twice a day for 7 day(s) 10/15/2019 Not-Taking Jardiance 10 MG 1 tablet Orally Once a day 05/01/2023 Active Test strips Insurance approved brand checking bs BID for 90 days one touch verio strips 08/06/2021 Active Olmesartan Medoxomil 5 MG 2 tablets Orally Once a day for 30 days Active Ativan 1 MG 1/2-1 tablet Orally tid prn anxiety 01/20/2020 Active Betamethasone Valerate 0.1 % 1 application Externally twice a day on eczema sites for 30 days 10/02/2020 Active IMMUNIZATIONS Vaccine Route Administration Date Status Comme nts Covid-19 Moderna Booster Unknown 10/30/2021 Administere d Covid-19 Moderna Booster Unknown 07/12/2022 Administere d Covid-19 Moderna Dose 1 Unknown 01/30/2021 Administered Covid-19 Moderna Dose 2 Unknown 02/27/2021 Administered Influenza >6 months Unknown 07/29/2020 Administered Influenza >6 months IM Intramuscular 08/06/2021 Administer ed Influenza >6 months IM Intramuscular 09/02/2022 Administer ed Upper inj Td IM Intramuscular 09/02/2022 Administered lower inj Tdap Unknown 03/17/2012 Administered SOCIAL HISTORY Sex Assigned At : Social History Observation Description Sex Assigned At Unknown PROBLEMS Problem Type ICD Code Onset Dates Problem Status W/U Status Risk SNOMED Code Notes Problem Essential hypertensi on (I10) Active confirmed 87004607 Problem Type 2 diabetes mellitus without complication, without long-term current use of insulin (E11.9) Active confirmed 916943256 Problem Left medial knee jeovany n (M25.562) Active confirmed 5104895634 Problem Hypothyroidism (acquired) (E03.9) Active confirmed 670071547 Problem Hypertriglyceridemia (E78.1) Active confirmed 009510012 Problem Gastroesophageal ref lux disease without esophagitis (K21.9) Active confirmed 530759247 Problem Seborrheic keratoses (L82.1) Active confirmed 280453244 Problem Atrophic vaginitis (N95.2) Active confirmed 40522329 Problem Angioedema, subseque nt encounter (T78.3XXD) Active confirmed 08215816 Problem BMI 40.0-44.9, adult (Z68.41) Active confirmed 183763478 Problem Yeast infection (B37.9) Active confirmed 9226386 Problem Stress incontinence (N39.3) Active confirmed 78524198 Problem Anxiety about health (F41.8) Active confirmed 726616234 Problem Dyshidrotic eczema (L30.1) Active confirmed 572681007 Problem Serrated adenoma of colon (D12.6) Active confirmed 266264006 Problem Skin tags, multiple acquired (L91.8) Active confirmed 357478412 Problem History of right benitez ast cancer (Z85.3) Active confirmed 915740399 VITAL SIGNS Heart Rate 80 /min 05/06/2023 XL Cuff Temperature 98.0 degrees Fahrenheit 04/07/2023 XL B P CUFF USED Blood pressure diastolic 76 mmHg 05/06/2023 XL Cuff Weight-kg 130 kg 05/06/2023 XL Cuff Height 66.5 in 05/06/2023 XL Cuff Blood pressure systolic 128 mmHg 05/06/2023 XL C uff Weight 286.6 lbs 05/06/2023 XL Cuff BMI 45.56 05/06/2023 XL Cuff Encounters Encounter Location Date Provider Diagnosis [facility] [address] [place], [place] [id number] 12/03/2022 JACOB BRUNO [facility] [address] [place], [place] [id number] 12/17/2022 JACOB BRUNO [facility] [address] [place], [place] [id number] 02/27/2023 MARICRUZ CHAVEZ [facility] [address] [place] [id number] 03/12/2023 MARICRUZ CHAVEZ [facility] [address] [place], [place] [id number] 09/02/2022 JACOB ORDONEZ Type 2 diabetes pawan itus without complication, without long-term current use of insulin E11.9 ; Adult general medical exam Z00.00 ; Essential hypertension I10 ; Serrated adenoma of colon D12.6 ; Hypothyroidism (acquired) E03.9 ; History of right breast cancer Z85.3 ; Hypertriglyceridemia E78.1 and Encounter for immunization Z23 [facility] [address] [place], [place] [id number] 10/29/2022 MARICRUZ CHAVEZ Dysfunction of right eustachian tube H69.81 [facility] [address] [place], [place] [id number] 01/28/2023 JACOB ORDONEZ Type 2 diabetes pawan itus without complication, without long-term current use of insulin E11.9 and Anxiety about health F41.8 [facility] [address] [place], [place] [id number] 02/24/2023 MARICRUZ CHAVEZ Dysuria R30.0 and Ac [place] midline low back pain without sciatica M54.50 [facility] [address] [place], [place] [id number] 04/07/2023 MARICRUZ CHAVEZ Acute otitis externa of left ear, unspecified type H60.502 [facility] [address] [place], [place] [id number] 05/02/2023 LOUIE QUEZADA Acute cystitis without hematuria N30.00 [facility] [address] [place], [place] [id number] 05/06/2023 JACOB MERY Type 2 diabetes pawan itus without complication, without long-term current use of insulin E11.9 and Essential hypertension I10 [facility] [address] [place], [place] [id number] 05/21/2023 JACOB MERY [facility] [address] [place], [place] [id number] 05/27/2022 JACOB MERY Gastroesophageal ref lux disease without esophagitis K21.9 [facility] [address] [place], [place] [id number] 08/19/2022 JACOB MERY Yeast infection B37. 9 [facility] [address] [place], [place] [id number] 08/25/2022 JACOB MERY Anxiety F41.9 [facility] [address] [place], [place] [id number] 08/29/2022 JACOB MERY Essential hypertensi on I10 [facility] [address] [place], [place] [id number] 09/09/2022 JACOB MERY Hypothyroidism (acqu ired) E03.9 [facility] [address] [place], [place] [id number] 11/14/2022 JACOB MERY Type 2 diabetes pawan itus without complication, without long-term current use of insulin E11.9 [facility] [address] [place], [place] [id number] 11/24/2022 JACOB MERY Gastroesophageal ref lux disease without esophagitis K21.9 [facility] [address] [place], [place] [id number] 01/06/2023 JACOB MERY Essential hypertensi on I10 [facility] [address] [place], [place] [id number] 02/05/2023 JACOB MERY Type 2 diabetes pawan itus without complication, without long-term current use of insulin E11.9 [facility] [address] [place], [place] [id number] 02/10/2023 JACOB MORINO Type 2 diabetes pawan itus without complication, without long-term current use of insulin E11.9 [facility] [address] [place], [place] [id number] 02/10/2023 JACOB BRUNO [facility] [address] [place], [place] [id number] 02/25/2023 JACOB MORINO Essential hypertensi on I10 [facility] [address] [place], [place] [id number] 03/25/2023 JACOB BRUNO [facility] [address] [place], [place] [id number] 04/29[facility] [address] [place], [place] [id number] 05/07/2023 JACOB MORINO Type 2 diabetes pawan itus without complication, without long-term current use of insulin E11.9 ASSESSMENTS Encounter Date Diagnosis Assessment Notes Treatment Notes Treatment Clinical Notes 05/27/2022 Gastroesophageal ref lux disease without esophagitis (ICD-10 - K21.9) 08/19/2022 Yeast infection (ICD -10 - B37.9) 08/29/2022 Essential hypertensi on (ICD-10 - I10) 09/02/2022 Type 2 diabetes pawan itus without complication, without long-term current use of insulin (ICD-10 - E11.9) A1c is at goal without medication. Continue behavioral modification. Follow-up in 3 months. 09/02/2022 Adult general medica l exam (ICD-10 - Z00.00) Mammography up-to-date. Colonoscopy follow-up for serrated sessile adenoma due. Referral to Dr. Rodriguez. Immunizations updated. Labs reviewed. Healthy living discussed. Follow-up in a year 09/09/2022 Hypothyroidism (acquired) (ICD-10 - E03.9) 10/29/2022 Dysfunction of right eustachian tube (ICD-10 - H69.81) trial of vaporizer, fluids, heat to the area, decongestants. return for fever o not resolving over a week or so 11/14/2022 Type 2 diabetes pawan itus without complication, without long-term current use of insulin (ICD-10 - E11.9) 11/24/2022 Gastroesophageal ref lux disease without esophagitis (ICD-10 - K21.9) 01/06/2023 Essential hypertensi on (ICD-10 - I10) 01/28/2023 Type 2 diabetes pawan itus without complication, without long-term current use of insulin (ICD-10 - E11.9) A1c with a marked increase. I think this is related to worsening diet and less exercise in the winter. We talked about various treatment options. We will add Trulicity at this time. I think she will benefit from this greatly. Warned of side effects. She can bring the first dose in for help with administration if need be. She will see our diabetic nurse educator in 4 weeks for a recheck and dose adjustment if needed. She will continue to check her blood sugars. She is gonorrhoeae commit to her exercise and dietary regimen. I will see her back in 3 months. 02/05/2023 Type 2 diabetes pawan itus without complication, without long-term current use of insulin (ICD-10 - E11.9) 02/10/2023 Type 2 diabetes pawan itus without complication, without long-term current use of insulin (ICD-10 - E11.9) 02/24/2023 Dysuria (ICD-10 - R30.0) negra l for uc tomorrow 02/25/2023 Essential hypertensi on (ICD-10 - I10) 05/02/2023 Acute cystitis witho ut hematuria (ICD-10 - N30.00) Your urine testing suggests that you probably have a urinary tract infection. It appears to be a bladder infection, and question of whether there might be a mild infection in the left kidney. A culture will be done to confirm whether this is truly the case. Young healthy people can flush out a urine infection with lots of water to keep the urine moving, as long as there is no fever or vomiting and as long as the pain is not severe. Most of the time we prescribe antibiotics, and will treat with bactrim. (trimethoprim sulfamethoxol) Many studies have failed to show any benefit from cranberry juice or supplements whatsoever in the prevention or treatment of urinary tract infections. 05/07/2023 Type 2 diabetes pawan itus without complication, without long-term current use of insulin (ICD-10 - E11.9) 05/06/2023 Type 2 diabetes pawan itus without complication, without long-term current use of insulin (ICD-10 - E11.9) start jardiance. check fs. ov in 3 mo for aic and 6 mo for PE 04/07/2023 Acute otitis externa of left ear, unspecified type (ICD-10 - H60.502) I do not see any evidence of an infection although your symptoms and exam suggest an early otitis externa. Since you are leaving the area we will use some drops in that ear. Also would recommend avoiding things that cause a lot of chewing or hard candies etc. Follow-up if your symptoms do not improve or if you have sudden loss of hearing. 08/25/2022 Anxiety (ICD-10 - F41.9) 05/06/2023 Essential hypertensi on (ICD-10 - I10) at goal. cont meds. 02/24/2023 Acute midline low ba ck pain without sciatica (ICD-10 - M54.50) Heat to the area, frequent stretches, consider changing the chair you now have for comfort. Stretches as we discussed. Use the muscle relaxant but cannot drive or consume alcohol. Call cannot improving over couple of weeks for PT 01/28/2023 Anxiety about health (ICD-10 - F41.8) Patient's overall anxiety is markedly improved. She would like to try off the sertraline. Due to the long half-life of this can have her discontinue it since she is on such a low dose. We will reassess how she is doing. She certainly can go back on if her mood exacerbates. 09/02/2022 Essential hypertensi on (ICD-10 - I10) Patient's blood pressure has been running a bit higher than I like to see it. She really has had numerous issues keeping her from really focusing and getting on top of this. She is going to work on it through behavioral modification. Were also going to increase her amlodipine up to 7.5 mg. Certainly if she starts to get a lot of peripheral edema we can reduce the dose back to 5 mg and add an alternative agent. I do not think she tolerate pushing her beta-jae much more. We will see her back in 3 months 09/02/2022 Serrated adenoma of colon (ICD-10 - D12.6) 09/02/2022 Hypothyroidism (acquired) (ICD-10 - E03.9) Clinically euthyroid. Needs a TSH drawn. Adjust dose as needed 09/02/2022 History of right benitez ast cancer (ICD-10 - Z85.3) Has had follow-u p with her oncologist. Its been 10 years. She is now just on routine screening. 09/02/2022 Hypertriglyceridemia (ICD-10 - E78.1) will see what flp shows. adjust dose statin prn 09/02/2022 Encounter for immunization (ICD-10 - Z23) 01/28/2023 Other Reviewed her thyroid level and her cholesterol. Hopefully we can get her blood sugars under better control her triglycerides will improve. We will keep her on her statin at her current dose PLAN OF TREATMENT Pending Test Test Name Order Date Mammogram LT, Dx 02/18/2022 BREAST COMPLETE LT* 02/24/2022 Next Appt Details Provider Name:JACOB ZENDEJAS, 08/07/2023 08:00:00 AM, [address] [place], [place], [phone], Provider Name:JACOB Eulogio ZENDEJAS, 11/13/2023 01:45:00 PM, [address] [place], [place], [id number], Insurance Providers Payer Name Payer Address Payer Phone Subscriber Number Group Number Insured Name Patient Relationship to Insured Coverage Start Date Coverage End Date [facility] [address] [place] [phone] [id number] Clara Diego Self - patient is the insured MEDICAL (GENERAL) HISTORY Medical History History ICD Code HTN Hypothyroidism Angioedema: Likely secondary to DAYLIN inhi bitor Hypothyroidism Impaired fasting glucose- Type II DM Low HDL high triglycerides Migraine headaches History of right breast canc er: Status post lumpectomy and radiation with her positive ER positive AR positive BRCA1 and 2 negative Lactose intolerance Stress incontinence Interstitial cystitis Low back pain History of uterine fibroids Chronic allergic rhinitis GERD Acquired lymphedema 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
== END 2023-05-22 08:45 | disposition home or self-care (01) ==
LOC: LBN 08:44
PROVIDERS: Visit Provider Physician Assistant Medical
DX: R35.0 Frequency of micturition (principal)
CPT/HCPCS: 81015; 87086